=== PATIENT | female | born 1955 | race Caucasian/White ===

== ENCOUNTER 2016-10-20 11:09 | Emergency (ER) | payer SELFPAY ==
[~2016-10-20] VITALS: Ht 157.5 cm; Wt 89.0 kg
[2016-10-20 11:18] VITALS: Ht 157.5 cm; Wt 89.0 kg
[2016-10-20] MEDS ORDERED: SOD CHLORIDE 0.9% 1,000 ML IV STA (12:33)
[2016-10-20 13:08] LABS: BASOPHIL # 0.1 10^3/ul (0.0-0.1); BASOPHILS % 0.5 % (0.0-2.0); EOSINOPHILS # 0.1 10^3/ul (0.0-0.5); EOSINOPHILS % 0.9 % (0.0-7.0); HEMATOCRIT 39.5 % (37.0-47.0); HEMOGLOBIN 13.4 g/dl (12.0-16.0); LYMPHOCYTES # 3.7 10^3/ul (0.8-2.9); LYMPHOCYTES % 33.9 % (15.0-51.0); MEAN CORPUSCULAR HEMOGLOBIN 28.3 pg (29.0-33.0); MEAN CORPUSCULAR HGB CONC 33.9 g/dl (32.0-37.0); MEAN CORPUSCULAR VOLUME 83.4 fl (82.0-101.0); MEAN PLATELET VOLUME 9.4 fl (7.4-10.4); MONOCYTE # 0.6 10^3/ul (0.3-0.9); MONOCYTES % 5.6 % (0.0-11.0); NEUTROPHIL # 6.5 10^3/ul (1.6-7.5); NEUTROPHILS % 59.1 % (39.0-77.0); PLATELET COUNT 267 10^3/UL (140-440); RED BLOOD COUNT 4.74 10^6/ul (4.20-5.40); RED CELL DISTRIBUTION WIDTH 13.2 % (11.5-14.5)
[2016-10-20 13:10] LABS: CONDITION 1
[2016-10-20] MEDS ORDERED: SITA1TAB PO (13:34)
[2016-10-20] MEDS ORDERED: [UNRECOGNIZED DRUG - OTHER] SUBCUTANE (13:36)
[2016-10-20 13:54] LABS: ADD UMIC NO; URINE BILIRUBIN (Dip) NEGATIVE (NEGATIVE); URINE BLOOD (Dip) NEGATIVE (NEGATIVE); URINE COLOR LT. YELLOW (YELLOW); URINE KETONES (Dip) NEGATIVE (NEGATIVE); URINE LEUKOCYTE ESTERASE (Dip) NEGATIVE (NEGATIVE); URINE NITRITE (Dip) NEGATIVE (NEGATIVE); URINE TOTAL PROTEIN (Dip) NEGATIVE (NEGATIVE); URINE UROBILINOGEN (Dip) 0.2 E.U./dL (0.1-1.0)
[2016-10-20] MEDS ORDERED: SITA100T8 PO (14:00)
[2016-10-20] MEDS ORDERED: METF-382 PO (14:00)
[2016-10-20 14:01] LABS: POTASSIUM 4.2 mmol/L (3.5-5.1)
[2016-10-20 14:03] LABS: CREATININE 0.43 mg/dl (0.44-1.00)
[2016-10-20 14:04] LABS: CALCIUM 8.9 mg/dl (8.4-10.2)
--- NOTE | 2016-10-20 14:19 | ERD ---
ER Documentation Chief Complaint Date/Time DATE: 10/20/16 TIME: 14:14 Chief Complaint INSOMNIA X3 DAYS, UNSTABLE BS,HTN HPI 61-year-old female with a history of diabetes and hypertension presenting with complaints of hyperglycemia at home. [place] She has been taking metformin and Januvia in addition to insulin, however she is not sure what kind of insulin she takes. She uses the insulin twice a day. She does not take anything for her hypertension because she states that she does not want to take too many medications. She complains of associated blurry vision that is chronic. She also complains of burning sensation in both her feet. None of this is new. She has had this for several months. She does not have a primary care physician at this time who manages her diabetes. She recently got insurance and is looking for her primary care doctor. She denies any dizziness, headache, nausea, vomiting, chest pain, shortness of breath, abdominal pain, nausea, or vomiting. She is urinating normally but occasionally urinates what she thinks is excessively. She is running out of both her Januvia and metformin and requesting a refill. ROS All systems reviewed and are negative except as per history of present illness. Medications Home Meds Active Scripts Metformin Hcl* (Metformin Hcl*) 500 Mg Tablet, 500 MG PO BID WITH MEALS, #60 TAB Prov:CORY RIVERA MD 10/20/16 Sitagliptin* (Januvia*) 100 Mg Tablet, 100 MG PO DAILY, #30 TAB Prov:CORY RIVERA MD 10/20/16 Reported Medications [Insolent] No Conflict Check, 15 UNITS SUBCUTANE BID ARMENIA INSULIN 10/20/16 Sitagliptin Phos/Metformin HCl (Janumet 50-500 mg Tablet) 1 Each Tablet, 1 EACH PO BID, TAB 10/20/16 Allergies Allergies: Coded Allergies: No Known Allergy (Unverified , 10/20/16) PMhx/Soc Medical and Surgical Hx: pt denies Surgical Hx Hx Cardiac Disorders: Yes (HTN ) Hx Miscellaneous Medical Probl: Yes (DM) Hx Alcohol Use: No Hx Substance Use: No Hx Tobacco Use: No Smoking Status: Never smoker FmHx Family History: No diabetes Physical Exam Vitals Vital Signs Date Time Temp Pulse Resp B/P Pulse Ox O2 Delivery O2 Flow Rate FiO2 10/20/16 11:18 98.1 88 18 192/81 99 Physical Exam Const: No apparent distress, well-appearing, nontoxic Head: Atraumatic Eyes: Normal Conjunctiva, Hipolito, EOMI ENT: Normal External Ears, Nose and Mouth. Neck: Full range of motion. No meningismus. Resp: Clear to auscultation bilaterally Cardio: Regular rate and rhythm, no murmurs Abd: Soft, non tender, non distended. Normal bowel sounds Skin: No petechiae or rashes Back: No midline or flank tenderness Ext: No cyanosis, or edema. 1+ bilateral DP and PT pulses, 2+ radial pulses bilaterally Neur: Awake and alert and oriented 3, cranial nerves intact, strength 5 out of 5 in bilateral upper and lower extremities, sensations decreased to painful stimuli in bilateral feet, normal gait Psych: Normal Mood and Affect Result Diagram: 10/20/16 1250 10/20/16 1320 Results 24 hrs Laboratory Tests Test 10/20/16 12:50 10/20/16 12:59 10/20/16 13:02 10/20/16 13:20 Basophils # 0.110^3/ul Basophils % 0.5% Blood Morphology Comment Eosinophils # 0.110^3/ul Eosinophils % 0.9% Hematocrit 39.5% Hemoglobin 13.4g/dl Lymphocytes # 3.710^3/ul Lymphocytes % 33.9% Mean Corpuscular Hemoglobin 28.3pg Mean Corpuscular Hemoglobin Concent 33.9g/dl Mean Corpuscular Volume 83.4fl Mean Platelet Volume 9.4fl Monocytes # 0.610^3/ul Monocytes % 5.6% Neutrophils # 6.510^3/ul Neutrophils % 59.1% Nucleated Red Blood Cells # 0.010^3/ul Nucleated Red Blood Cells % 0.0/100WBC Platelet Count 72573^3/UL Red Blood Count 4.7410^6/ul Red Cell Distribution Width 13.2% White Blood Count 11.010^3/ul Urine Bilirubin NEGATIVE Urine Clarity CLEAR Urine Color LT. YELLOW Urine Glucose 0.5%% Urine Hemoglobin NEGATIVE Urine Ketones NEGATIVE Urine Leukocyte Esterase NEGATIVE Urine Nitrite NEGATIVE Urine Specific [place] >=1.030 Urine Total Protein NEGATIVE Urine Urobilinogen 0.2 E.U./dL Urine pH 5.5 Bedside Glucose 252mg/dL Anion Gap 17 Blood Urea Nitrogen 9mg/dl Calcium Level 8.9mg/dl Carbon Dioxide Level 22mmol/L Chloride Level 103mmol/L Creatinine 0.43mg/dl Glucose Level 243mg/dl Potassium Level 4.2mmol/L Sodium Level 138mmol/L Current Medications Medications (Trade) Dose Ordered Sig/Stefan Route PRN Reason Start Time Stop Time Status Last Admin Dose Admin Sodium Chloride (NS) 1,000 ml @ 1,000 mls/hr Q1H STAT IV 10/20/16 12:33 10/20/16 13:32 DC 10/20/16 13:01 Procedures/MDM Patient is presenting with hyperglycemia without evidence of diabetic ketoacidosis. Her vitals are also notable for uncontrolled hypertension. Patient's blood pressure was elevated (>120/80) but appears stable without evidence of hypertension emergency or urgency. The patient was counseled about the risks of hypertension and urged to pursue outpatient monitoring and therapy within a week with their primary care physician. IV fluids were given. Her labs show hyperglycemia without evidence of renal failure. I believe the patient is stable for discharge at this time with refill of her Metformin and Januvia. I discussed with her the importance of following up with her primary care doctor in order to optimize her diabetic treatment. I gave her a list of clinics that she can go to. Return precautions were discussed with the patient and her family. Patient was discharged in stable condition. Departure Diagnosis: Primary Impression: Hyperglycemia due to type 2 diabetes mellitus Diabetes mellitus extermination inspector insulin use: with nursing home use Qualified Code: E11.65 - Type 2 diabetes mellitus with hyperglycemia, with long-term current use of insulin Additional Impression: Hypertension Hypertension type: essential hypertension Qualified Code: I10 - Essential hypertension Condition: Stable Patient Instructions: Hyperglycemia (High Blood Sugar), High Blood Pressure ( Hypertension) Referrals: COMMUNITY CLINICS YOU HAVE RECEIVED A MEDICAL SCREENING EXAM AND THE RESULTS INDICATE THAT YOU DO NOT HAVE A CONDITION THAT REQUIRES URGENT TREATMENT IN THE EMERGENCY DEPARTMENT. FURTHER EVALUATION AND TREATMENT OF YOUR CONDITION CAN WAIT UNTIL YOU ARE SEEN IN YOUR DOCTORS OFFICE WITHIN THE NEXT 1-2 DAYS. IT IS YOUR RESPONSIBILITY TO MAKE AN APPOINTMENT FOR FOLOW-UP CARE. IF YOU HAVE A PRIMARY DOCTOR --you should call your primary doctor and schedule an appointment IF YOU DO NOT HAVE A PRIMARY DOCTOR YOU CAN CALL OUR PHYSICIAN REFERRAL HOTLINE AT IF YOU CAN NOT AFFORD TO SEE A PHYSICIAN YOU CAN CHOSE FROM THE FOLLOWING [facility] [address] [facility] [phone] [facility]. [facility] [address] [facility] [address] [facility] [phone] [facility]. [facility]. [address] CORY CASTRO MD Oct 20, 2016 14:19
[2016-10-20 14:20] VITALS: BP 147/78; PULSE 78; RESP 18
== END 2016-10-20 14:23 | disposition home or self-care (01) ==
LOC: E/R 11:09
DX: E11.65 Type 2 diabetes mellitus with hyperglycemia (principal); I10 Essential (primary) hypertension; Z79.84 Long term (current) use of oral hypoglycemic drugs; Z79.4 Long term (current) use of insulin
CPT/HCPCS: 36415; 80048; 81003; 82962; 85025; 99284; J7030